=== PATIENT | female | born 1995 | race Caucasian/White ===

== ENCOUNTER 2017-04-14 06:46 | Inpatient (IN) | payer MEDICAID ==
[2017-04-14] MEDS ORDERED: Misoprostol 50 MCG (1/2 of 100 MCG) Tab ONE (07:37)
[2017-04-14] MEDS ORDERED: Misoprostol 50 MCG (1/2 of 100 MCG) Tab VAG ONE (07:38)
[2017-04-14] MEDS ORDERED: Ondansetron 4 MG/2 ML SDV IV PRN (08:06)
[2017-04-14] MEDS ORDERED: Calcium Carbonate 500 MG Tab.Chew PO PRN (08:06)
[2017-04-14] MEDS ORDERED: fentaNYL 100 MCG/2 ML SDV IVPUSH PRN (08:06)
[2017-04-14] MEDS ORDERED: Sodium Chloride 0.9% 10 ML Syringe FLUSH PRN (08:06)
[2017-04-14] MEDS ORDERED: Acetaminophen 325 MG Tab PO PRN (08:06)
--- NOTE | 2017-04-14 08:23 | PCM.LDHP ---
L&D History of Present Illness - General Date of Service: 04/14/17 Admit Problem/Dx: Patient Status Order with Admit Dx/Problem 04/14/17 08:06 Patient Status [ADT] Routine Admission Diagnosis/Problem Admission Diagnosis/Problem Source of Information: Patient History Limitations: Reports: No Limitations - History of Present Illness Associated Symptoms: Reports: N - Related Data Allergies/Adverse Reactions: Allergies Allergy/AdvReac Type Severity Reaction Status Date / Time No Known Allergies Allergy Verified 03/22/16 17:33 Home Medications: Home Meds Ferrous Sulfate [Iron] 1 tab PO DAILY 01/28/17 [History] Past Medical History - Past Health History Medical/Surgical History: Denies Medical/Surgical History HEENT History: Reports: Impaired Vision Genitourinary History: Reports: Other (See Below) Other Genitourinary History: UTI [employer] History: Reports: Other OB/BYN History: TRACY-04/13/2017 Neurological History: Reports: Migraines Social & Family History - Tobacco Use Smoking Status *Q: Never Smoker Second Hand Smoke Exposure: Yes - Caffeine Use Caffeine Use: Reports: Soda Other Caffeine Use: twice per week - Alcohol Use Days Per Week of Alcohol Use: 0 - Recreational Drug Use Recreational Drug Use: No - Living Situation & Occupation Living situation: Reports: with Significant Other Occupation: Employed H&P Review of Systems - Review of Systems: Review Of Systems: See Below General: Reports: No Symptoms HEENT: Reports: No Symptoms Pulmonary: Reports: No Symptoms Cardiovascular: Reports: No Symptoms Gastrointestinal: Reports: No Symptoms Genitourinary: Reports: No Symptoms Musculoskeletal: Reports: No Symptoms Skin: Reports: No Symptoms Psychiatric: Reports: No Symptoms Neurological: Reports: No Symptoms Hematologic/Lymphatic: Reports: No Symptoms Immunologic: Reports: No Symptoms L&D Exam - Exam Exam: See Below - Vital Signs Vital Signs: Last Vital Signs Temp 36.7 C 04/14/17 07:00 Pulse 86 04/14/17 07:00 Resp 16 04/14/17 07:00 BP 142/100 H 04/14/17 07:00 Pulse Ox 95 04/14/17 07:00 Weight: 77.564 kg - OB Specific Contraction Intensity: Mild Movement: Active Heart Tones: Present Heart Rate (FHR) Variability: Moderate (6-25 bmp) Presentation: Vertex - Watson Score Watson Score Cervix Position: Anterior Watson Score Consistency: Soft Watson Score Effacement: >80% Watson Score Dilation: 3-4 cm Watson Score Infant's Station: -1 ,0 Watson Score Total: 11 - Exam General: Alert, Oriented HEENT: PERRLA, Conjunctiva Clear, EACs Clear, EOMI, Hearing Intact, Mucosa Moist & [place], Nares Patent, Normal Nasal Septum, Posterior Pharynx Clear, TMs Clear Neck: Supple, Trachea Midline Lungs: Clear to Auscultation, Normal Respiratory Effort Cardiovascular: Regular Rate, Regular Rhythm GI/Abdominal Exam: Normal Bowel Sounds, Soft, Non-Tender, No Organomegaly, No Distention, No Abnormal Bruit, No Mass, Pelvis Stable Genitourinary: Normal external exam, Normal bimanual exam Back Exam: Normal Inspection, Full Range of Motion Extremities: Normal Inspection, Normal Range of Motion, Non-Tender, No Pedal Edema, Normal Capillary Refill Skin: Warm, Dry, Intact Neurological: Cranial Nerves Intact, Reflexes Equal Bilateral DTR: 2+: Patella (L), Patella (R) Psychiatric: Alert, Normal Affect, Normal Mood - Patient Data Lab Results Last 24 hrs: Laboratory Results - last 24 hr 04/14/17 04/14/17 04/14/17 Range/Units 06:56 06:56 07:05 WBC 7.7 (4.5-11.0) K/uL RBC 3.85 (3.30-5.50) M/uL Hgb 11.6 L (12.0-15.0) g/dL Hct 35.1 L (36.0-48.0) % MCV 91 (80-98) fL MCH 30 (27-31) pg MCHC 33 (32-36) % Plt Count 162 (150-400) K/uL Neut % (Auto) 47 (36-66) % Lymph % (Auto) 44 (24-44) % [place] % (Auto) 7 H (2-6) % Eos % (Auto) 2 (2-4) % Baso % (Auto) 0 (0-1) % Urine Color Yellow Urine Appearance Clear Urine pH 5.0 (4.5-8.0) Ur Specific [place] 1.010 (1.008-1.030) Urine Protein 100 H (NEGATIVE) mg/dL Urine Glucose (UA) Normal (NEGATIVE) mg/dL Urine Ketones Negative (NEGATIVE) mg/dL Urine Occult Blood Negative (NEGATIVE) Urine Nitrite Negative (NEGATIVE) Urine Bilirubin Negative (NEGATIVE) Urine Urobilinogen Normal (NORMAL) mg/dL Ur Leukocyte Esterase Small (NEGATIVE) Urine RBC 0-5 (0-5) Urine WBC 5-10 H (0-5) Ur Epithelial Cells Moderate Amorphous Sediment Not seen Urine Bacteria Moderate Urine Mucus Few Urine Opiates Screen Negative (NEGATIVE) Ur Oxycodone Screen Negative (NEGATIVE) Urine Methadone Screen Negative (NEGATIVE) Ur Propoxyphene Screen Negative (NEGATIVE) Ur Barbiturates Screen Negative (NEGATIVE) Ur Tricyclics Screen Negative (NEGATIVE) Ur Phencyclidine Scrn Negative (NEGATIVE) Ur Amphetamine Screen Negative (NEGATIVE) U Methamphetamines Scrn Negative (NEGATIVE) Urine MDMA Screen Negative (NEGATIVE) U Benzodiazepines Scrn Negative (NEGATIVE) U Cocaine Metab Screen Negative (NEGATIVE) U Marijuana (THC) Screen Negative (NEGATIVE) Result Diagrams: 04/14/17 07:05 - Problem List (1) Positive GBS test SNOMED Code(s): 9822761012346, 5983274930013 ICD Code: B95.1 - STREPTOCOCCUS, GROUP B, CAUSING DISEASES CLASSD ELSWHR Status: Acute Current Visit: Yes (2) Elective induction of labor planned SNOMED Code(s): 664128382 ICD Code: [id number] - Status: Acute Current Visit: Yes (3) SNOMED Code(s): 34271419 ICD Code: Z34.90 - ENCNTR FOR SUPRVSN OF NORMAL , UNSP, UNSP TRIMESTER Status: Acute Current Visit: Yes Qualifiers: Weeks of gestation: 40 weeks Qualified Code(s): Z3A.40 - 40 weeks gestation of Problem List Initiated/Reviewed/Updated: Yes Orders Last 24hrs: Active Orders 24 hr Category Date Time Status Patient Status [ADT] Routine ADT 04/14/17 08:06 Ordered Ambulate [RC] PER UNIT ROUTINE Care 04/14/17 08:06 Ordered Communication Order [RC] ASDIRECTED Care 04/14/17 08:06 Ordered Heart Tones [RC] PER UNIT ROUTINE Care 04/14/17 08:06 Ordered Notify Provider Vital Signs [RC] PRN Care 04/14/17 08:06 Ordered Notify Provider [RC] PRN Care 04/14/17 08:06 Ordered OB Check [OM.PC] Click to Edit Care 04/14/17 06:55 Ordered Up ad [place] [RC] ASDIRECTED Care 04/14/17 08:06 Ordered VTE/DVT Education [RC] Click to Edit Care 04/14/17 08:08 Ordered Vital Signs [RC] PER UNIT ROUTINE Care 04/14/17 08:06 Ordered Regular Diet [DIET] Diet 04/14/17 Breakfast Ordered Acetaminophen [Tylenol] Med 04/14/17 08:06 Ordered 650 mg PO Q4H PRN Calcium Carbonate [Tums] Med 04/14/17 08:06 Ordered 1,000 mg PO Q2HR PRN Lactated Ringers [Ringers, Lactated] 1,000 ml Med 04/14/17 08:30 Ordered IV ASDIRECTED Ondansetron [Zofran] Med 04/14/17 08:06 Ordered 4 mg IV Q4H PRN Penicillin G Potassium [Pfizerpen] 2.5 millunits Med 04/14/17 12:30 Ordered Sodium Chloride 0.9% [Normal Saline] 100 ml IV Q4H Penicillin G Potassium [Pfizerpen] 5 millunits Med 04/14/17 08:14 Ordered Sodium Chloride 0.9% [Normal Saline] 100 ml IV ONETIME Sodium Chloride 0.9% [Saline Flush] Med 04/14/17 08:06 Ordered 10 ml FLUSH ASDIRECTED PRN fentaNYL [Sublimaze] Med 04/14/17 08:06 Ordered 100 mcg IVPUSH Q1H PRN DVT/VTE Prophylaxis Reflex [OM.PC] Routine Oth 04/14/17 08:06 Ordered Saline Lock Insert [OM.PC] Routine Oth 04/14/17 08:06 Ordered Resuscitation Status Routine Resus Stat 04/14/17 08:06 Ordered Medication Orders Acetaminophen (Tylenol) 650 mg PO Q4H PRN PRN Reason: Pain (Mild 1-3) and fever Calcium Carbonate/Glycine (Tums) 1,000 mg PO Q2H PRN PRN Reason: Indigestion Fentanyl (Sublimaze) 100 mcg IVPUSH Q1H PRN PRN Reason: Pain (moderate 4-6) Penicillin G Potassium 5 (millunits/ Sodium Chloride) 100 mls @ 200 mls/hr IV ONETIME ONE Stop: 04/14/17 08:43 Lactated Ringer's (Ringers, Lactated) 1,000 mls @ 125 mls/hr IV ASDIRECTED SUKH Penicillin G Potassium 2.5 (millunits/ Sodium Chloride) 100 mls @ 200 mls/hr IV Q4H SU[facility] Ondansetron HCl (Zofran) 4 mg IV Q4H PRN PRN Reason: Nausea/Vomiting Sodium Chloride (Saline Flush) 10 ml FLUSH ASDIRECTED PRN PRN Reason: Keep Vein Open Assessment/Plan Comment:: 04/14/2017 22 yo here at 40 1/7 weeks gestation for an elective induction of labor. SVE-3/80/-1, Bishops Score-11 Cytotec 50mcg placed FHTs category one [place] irregularly Labs-Hgb 11.6, O positive, GBS positive, Rubella Immune, RPR nonreactive, Hep B negative, HIV negative Plan- Monitor for active labor Kei for GBS status IV fluids-LR @125ml/hr as needed, may bolus if needed Up and about as tolerated Intermittent Monitoring as needed Pain management per patient request Anticipate and plan for a vaginal delivery
[2017-04-14] MEDS ORDERED: Lactated Ringers 1,000 ML IV SCH (08:30)
[2017-04-14] MEDS ORDERED: Penicillin G Potassium 5 MILLUNITS in Sodium Chloride 0.9% 100 ML IV ONE (08:30)
[2017-04-14] MEDS ORDERED: Lidocaine 1% 50 ML MDV ONE (11:25)
[2017-04-14] MEDS ORDERED: Lactated Ringers 1,000 ML IV ONE (12:17)
--- NOTE | 2017-04-14 12:17 | PCM.PNLD ---
Labor Progress Note - VS & Meds Vital Signs: Last Vital Signs Temp 37.1 C 04/14/17 09:55 Pulse 77 04/14/17 09:55 Resp 16 04/14/17 07:00 BP 141/102 H 04/14/17 09:55 Pulse Ox 95 04/14/17 07:00 Active Medications: Current Medications Acetaminophen (Tylenol) 650 mg PO Q4H PRN PRN Reason: Pain (Mild 1-3) and fever Calcium Carbonate/Glycine (Tums) 1,000 mg PO Q2H PRN PRN Reason: Indigestion Fentanyl (Sublimaze) 100 mcg IVPUSH Q1H PRN PRN Reason: Pain (moderate 4-6) Lactated Ringer's (Ringers, Lactated) 1,000 mls @ 125 mls/hr IV ASDIRECTED SUKH Penicillin G Potassium 2.5 (millunits/ Sodium Chloride) 50 mls @ 100 mls/hr IV Q4H SU[facility] Ondansetron HCl (Zofran) 4 mg IV Q4H PRN PRN Reason: Nausea/Vomiting Sodium Chloride (Saline Flush) 10 ml FLUSH ASDIRECTED PRN PRN Reason: Keep Vein Open Discontinued Medications Penicillin G Potassium 5 (millunits/ Sodium Chloride) 100 mls @ 200 mls/hr IV ONETIME ONE Stop: 04/14/17 08:59 Last Admin: 04/14/17 08:39 Dose: 200 mls/hr Oxytocin/Sodium Chloride (Pitocin In Ns 20 Units/1,000 Ml) Confirm Administered Dose 20 unit in 1,000 mls @ as directed .ROUTE .STK-MED ONE Stop: 04/14/17 11:26 Lidocaine HCl (Xylocaine 1%) Confirm Administered Dose 100 ml .ROUTE .STK-MED ONE Stop: 04/14/17 11:26 Misoprostol (Cytotec) 50 mcg VAG ONETIME ONE Stop: 04/14/17 07:39 Last Admin: 04/14/17 07:35 Dose: 50 mcg Misoprostol (Cytotec) Confirm Administered Dose 50 mcg .ROUTE .STK-MED ONE Stop: 04/14/17 07:38 Last Admin: 04/14/17 10:43 Dose: Not Given - Uterine Contractions Uterine Monitoring Mode: External [place] Contraction Frequency (min): 1.5-2.5 Contraction Duration (sec): 60-80 Contraction Intensity: Moderate Uterine Resting Tone: Soft - Monitoring Heart Rate (FHR) Variability: Moderate (6-25 bmp) Accelerations: Present, 15x15 Decelerations: Early, Variable - Vaginal Exam Dilation (cm): 6 Effacement (Percent): 95 Station: 0 Cervical Position: Anterior Sterile Vaginal Exam Performed By: Deb West - Labor Progress (Free Text) Labor Progress: 04/14/2017 Progressing well in labor-SROM around 1030 during a cervical exam by RN CHAVA-6-/95/0 Patient is tolerating pain well, has been in tub and changed positions Would now like IV fentanyl FHTs category one with occasional early/variable BP levels have been high, small amount of protein in urine, but other labs negative and patient is asymptomatic, will continue to monitor and get her delivered. Plan- Continue to monitor labor Continue to monitor FHTs Continue to monitor VS and for signs and symptoms of preeclampsia Pain medication per patient request Patient may have an epidural if desires Plan and anticipate vaginal delivery
[2017-04-14] MEDS ORDERED: Penicillin G Potassium 2.5 MILLUNITS in Sodium Chloride 0.9% 50 ML IV SCH (12:30)
--- NOTE | 2017-04-14 13:17 | PCM.PNLD ---
Labor Progress Note - VS & Meds Vital Signs: Last Vital Signs Temp 37.1 C 04/14/17 09:55 Pulse 72 04/14/17 11:35 Resp 16 04/14/17 07:00 BP 156/103 H 04/14/17 11:35 Pulse Ox 95 04/14/17 07:00 Active Medications: Current Medications Acetaminophen (Tylenol) 650 mg PO Q4H PRN PRN Reason: Pain (Mild 1-3) and fever Calcium Carbonate/Glycine (Tums) 1,000 mg PO Q2H PRN PRN Reason: Indigestion Fentanyl (Sublimaze) 100 mcg IVPUSH Q1H PRN PRN Reason: Pain (moderate 4-6) Last Admin: 04/14/17 12:10 Dose: 50 mcg Lactated Ringer's (Ringers, Lactated) 1,000 mls @ 125 mls/hr IV ASDIRECTED SUKH Last Admin: 04/14/17 12:18 Dose: 125 mls/hr Penicillin G Potassium 2.5 (millunits/ Sodium Chloride) 50 mls @ 100 mls/hr IV Q4H [facility] Last Admin: 04/14/17 12:16 Dose: 100 mls/hr Lactated Ringer's (Ringers, Lactated) 1,000 mls @ 999 mls/hr IV .BOLUS ONE Stop: 04/14/17 13:17 Ondansetron HCl (Zofran) 4 mg IV Q4H PRN PRN Reason: Nausea/Vomiting Last Admin: 04/14/17 13:10 Dose: 4 mg Sodium Chloride (Saline Flush) 10 ml FLUSH ASDIRECTED PRN PRN Reason: Keep Vein Open Discontinued Medications Penicillin G Potassium 5 (millunits/ Sodium Chloride) 100 mls @ 200 mls/hr IV ONETIME ONE Stop: 04/14/17 08:59 Last Admin: 04/14/17 08:39 Dose: 200 mls/hr Oxytocin/Sodium Chloride (Pitocin In Ns 20 Units/1,000 Ml) Confirm Administered Dose 20 unit in 1,000 mls @ as directed .ROUTE .STK-MED ONE Stop: 04/14/17 11:26 Lidocaine HCl (Xylocaine 1%) Confirm Administered Dose 100 ml .ROUTE .STK-MED ONE Stop: 04/14/17 11:26 Misoprostol (Cytotec) 50 mcg VAG ONETIME ONE Stop: 04/14/17 07:39 Last Admin: 04/14/17 07:35 Dose: 50 mcg Misoprostol (Cytotec) Confirm Administered Dose 50 mcg .ROUTE .STK-MED ONE Stop: 04/14/17 07:38 Last Admin: 04/14/17 10:43 Dose: Not Given - Uterine Contractions Uterine Monitoring Mode: External [place] Contraction Frequency (min): 1.5-2.5 Contraction Duration (sec): 60-80 Contraction Intensity: Moderate Uterine Resting Tone: Soft - Monitoring Heart Rate (FHR) Variability: Moderate (6-25 bmp) Accelerations: Present, 15x15 Decelerations: Early, Variable - Vaginal Exam Dilation (cm): 9 Effacement (Percent): 100 Station: 0 Cervical Position: Anterior Sterile Vaginal Exam Performed By: Deb West - Labor Progress (Free Text) Labor Progress: 04/14/2017 Patient progressing well SVE-9/100/+1 FHTs with some variables and earlys Tolerating pain with movement and breathing, did have one dose of fentanyl Plan- Continue to monitor labor Continue to monitor FHTs Plan and anticipate vaginal delivery
[2017-04-14] MEDS ORDERED: Lidocaine 1% 50 ML MDV INJECT ONE (16:51)
[2017-04-14] MEDS: Acetaminophen/HYDROcodone 325-5 MG Tab PO PRN (17:00)
[2017-04-14] MEDS ORDERED: Benzocaine 20% Top Spray 56 GM Bottle TOP PRN (17:03)
[2017-04-14] MEDS ORDERED: Witch Hazel Medicated Pads 100/Jar TOP PRN (17:03)
[2017-04-14] MEDS ORDERED: Lanolin 100% Cream 40 GM Tube TOP PRN (17:03)
--- NOTE | 2017-04-14 17:27 | PCM.DEL ---
L & D Note - General Info Date of Service: 04/14/17 Mother's Due Date: 04/13/17 - Delivery Note Cervical Ripening Method: Misoprostil Delivery Outcome: Livebirth Delivery Method: Spontaneous Vaginal Delivery Infant Delivery Mode: Vacuum Extraction Presentation: Left Occiput Anterior (ARAMIS) Nuchal Cord: Present (times two), Reduced Anesthesia Type: None Anesthetic: Lidocaine (Xylocaine) 1% Plain Amniotic Fluid Description: Clear Episiotomy Type: Right Mediolateral Laceration: None Suture size: 3-0 Placenta: Intact, Spontaneous Cord: 3 Vessels Estimated Blood Loss: 300 Resuscitation Needed: No [place]: Bulb Syringe, Stimulated, Warmed, [place] Used Provider: Deb West Score 1 min: 8 Score 5 min: 9 Score 10 min: 9 Second Stage Interventions: Reports: Encouragement Given, Pushing Effectively, Pushing, Stirrups/Leg Supports Delivery Comments (Free Text/Narrative):: 04/14/2017 22 yo G1 now P1 at 40 1/7 gestational weeks delivered a viable male at 1534 on 04/14/2017 with a vacuum assisted delivery after cutting a mediolateral episiotomy in an ARAMIS position with a nuchal cord times two easily reduced. was then placed on blanket on abdomen, bulb suctioned, warmed, and stimulated. Infant began to cry vigorously. APGARS-8/9/9, weight-5lbs 15oz, length-20.4 inches. Placenta expressed spontaneously and intact, 3 vessel cord , EBL-300ml. Episiotomy repaired in usual fashion. Inspection shown no lacerations to the cervix, vagina, or rectum. Mother stable with infant skin to skin at this time. Induction Criteria - Watson Score Watson Score Dilation: 3-4 cm Watson Score Effacement: >80% Watson Score 's Station: -1 ,0 Watson Score Consistency: Soft Watson Score Cervix Position: Anterior Watson Score Total: 11 Watson Score Presenting Part: Reports: Cephalic - Induction Gestational Age >/= 39 wks: Yes Estimated Pelvis: Reports: Adequate Reassuring Monitoring Strip: Yes Vacuum Extractor Progress Note - Alternative Labor Strategies Considered Alternative Labor Strategies Considered:: Reports: Yes Strategies Considered:: Reports: Contraction Intensity Adequate, Position Changes Used to Facilitate Rotation & Descent, Empty Bladder, Rest Indications Considered:: Reports: Yes Indications:: Reports: Suspicion of Immediate or Potential Compromise Time Out:: Reports: Yes - Patient Prepared Patient Prepared:: Reports: Yes Informed Consent:: Reports: Yes Risks: Reports: Yes Risks Include:: Reports: Laceration, Shoulder Dystocia, Maternal Injury Anesthesia/Analgesia Adequate:: Reports: Yes - Probability of Success High Probability of Success:: Reports: Yes Weight Estimated:: Reports: SGA Patient Diabetic:: Reports: No Pelvis Adequate:: Reports: Yes Asynclitic:: Reports: No - Application Time Maximum Application Time & Number of Pop-Offs Predetermined:: Reports: Yes Total Application Time (min): *max=20min: 2 Number of Times Cup Disengaged:: 0 Vacuum Extraction: Successful - Exit Strategy Exit strategy available:: Reports: Yes and resuscitation teams readily available:: Reports: Yes - General Info Date of Service: 04/14/17 Admission Dx/Problem (Free Text): Patient Status Order with Admit Dx/Problem 04/14/17 08:06 Patient Status [ADT] Routine Admission Diagnosis/Problem Admission Diagnosis/Problem Functional Status: Reports: Pain Controlled - Review of Systems General: Reports: No Symptoms HEENT: Reports: No Symptoms Pulmonary: Reports: No Symptoms Cardiovascular: Reports: No Symptoms Gastrointestinal: Reports: No Symptoms Genitourinary: Reports: No Symptoms Musculoskeletal: Reports: No Symptoms Skin: Reports: No Symptoms Neurological: Reports: No Symptoms Psychiatric: Reports: No Symptoms - Patient Data Vitals - Most Recent: Last Vital Signs Temp 37.1 C 04/14/17 09:55 Pulse 72 04/14/17 11:35 Resp 16 04/14/17 07:00 BP 156/103 H 04/14/17 11:35 Pulse Ox 95 04/14/17 07:00 Weight - Most Recent: 77.564 kg I&O - Last 24 Hours: Intake & Output 04/14/17 04/14/17 04/14/17 06:59 14:59 22:59 Intake Total 150 2000 Balance 150 1999 Lab Results Last 24 Hours: Laboratory Results - last 24 hr 04/14/17 04/14/17 04/14/17 Range/Units 06:56 06:56 07:05 WBC 7.7 (4.5-11.0) K/uL RBC 3.85 (3.30-5.50) M/uL Hgb 11.6 L (12.0-15.0) g/dL Hct 35.1 L (36.0-48.0) % MCV 91 (80-98) fL MCH 30 (27-31) pg MCHC 33 (32-36) % Plt Count 162 (150-400) K/uL Neut % (Auto) 47 (36-66) % Lymph % (Auto) 44 (24-44) % [place] % (Auto) 7 H (2-6) % Eos % (Auto) 2 (2-4) % Baso % (Auto) 0 (0-1) % Sodium (140-148) mmol/L Potassium (3.6-5.2) mmol/L Chloride (100-108) mmol/L Carbon Dioxide (21-32) mmol/L Anion Gap (5.0-14.0) mmol/L BUN (7-18) mg/dL Creatinine (0.6-1.0) mg/dL Est Cr Clr Drug Dosing mL/min Estimated GFR (MDRD) (>60) Glucose (74-106) mg/dL Calcium (8.5-10.1) mg/dL Total Bilirubin (0.2-1.0) mg/dL AST (15-37) U/L ALT (12-78) U/L Alkaline Phosphatase (46-116) U/L Total Protein (6.4-8.2) g/dL Albumin (3.4-5.0) g/dL Globulin (2.3-3.5) g/dL Albumin/Globulin Ratio (1.2-2.2) Urine Color Yellow Urine Appearance Clear Urine pH 5.0 (4.5-8.0) Ur Specific [place] 1.010 (1.008-1.030) Urine Protein 100 H (NEGATIVE) mg/dL Urine Glucose (UA) Normal (NEGATIVE) mg/dL Urine Ketones Negative (NEGATIVE) mg/dL Urine Occult Blood Negative (NEGATIVE) Urine Nitrite Negative (NEGATIVE) Urine Bilirubin Negative (NEGATIVE) Urine Urobilinogen Normal (NORMAL) mg/dL Ur Leukocyte Esterase Small (NEGATIVE) Urine RBC 0-5 (0-5) Urine WBC 5-10 H (0-5) Ur Epithelial Cells Moderate Amorphous Sediment Not seen Urine Bacteria Moderate Urine Mucus Few Urine Opiates Screen Negative (NEGATIVE) Ur Oxycodone Screen Negative (NEGATIVE) Urine Methadone Screen Negative (NEGATIVE) Ur Propoxyphene Screen Negative (NEGATIVE) Ur Barbiturates Screen Negative (NEGATIVE) Ur Tricyclics Screen Negative (NEGATIVE) Ur Phencyclidine Scrn Negative (NEGATIVE) Ur Amphetamine Screen Negative (NEGATIVE) U Methamphetamines Scrn Negative (NEGATIVE) Urine MDMA Screen Negative (NEGATIVE) U Benzodiazepines Scrn Negative (NEGATIVE) U Cocaine Metab Screen Negative (NEGATIVE) U Marijuana (THC) Screen Negative (NEGATIVE) 04/14/17 Range/Units 08:30 WBC (4.5-11.0) K/uL RBC (3.30-5.50) M/uL Hgb (12.0-15.0) g/dL Hct (36.0-48.0) % MCV (80-98) fL MCH (27-31) pg MCHC (32-36) % Plt Count (150-400) K/uL Neut % (Auto) (36-66) % Lymph % (Auto) (24-44) % [place]ckenzie % (Auto) (2-6) % Eos % (Auto) (2-4) % Baso % (Auto) (0-1) % Sodium 136 L (140-148) mmol/L Potassium 3.8 (3.6-5.2) mmol/L Chloride 103 (100-108) mmol/L Carbon Dioxide 24 (21-32) mmol/L Anion Gap 12.8 (5.0-14.0) mmol/L BUN 16 (7-18) mg/dL Creatinine 0.7 (0.6-1.0) mg/dL Est Cr Clr Drug Dosing 115.36 mL/min Estimated GFR (MDRD) > 60 (>60) Glucose 80 (74-106) mg/dL Calcium 8.6 (8.5-10.1) mg/dL Total Bilirubin 0.1 L (0.2-1.0) mg/dL AST 23 (15-37) U/L ALT 20 (12-78) U/L Alkaline Phosphatase 164 H (46-116) U/L Total Protein 7.1 (6.4-8.2) g/dL Albumin 2.9 L (3.4-5.0) g/dL Globulin 4.2 H (2.3-3.5) g/dL Albumin/Globulin Ratio 0.7 L (1.2-2.2) Urine Color Urine Appearance Urine pH (4.5-8.0) Ur Specific [place] (1.008-1.030) Urine Protein (NEGATIVE) mg/dL Urine Glucose (UA) (NEGATIVE) mg/dL Urine Ketones (NEGATIVE) mg/dL Urine Occult Blood (NEGATIVE) Urine Nitrite (NEGATIVE) Urine Bilirubin (NEGATIVE) Urine Urobilinogen (NORMAL) mg/dL Ur Leukocyte Esterase (NEGATIVE) Urine RBC (0-5) Urine WBC (0-5) Ur Epithelial Cells Amorphous Sediment Urine Bacteria Urine Mucus Urine Opiates Screen (NEGATIVE) Ur Oxycodone Screen (NEGATIVE) Urine Methadone Screen (NEGATIVE) Ur Propoxyphene Screen (NEGATIVE) Ur Barbiturates Screen (NEGATIVE) Ur Tricyclics Screen (NEGATIVE) Ur Phencyclidine Scrn (NEGATIVE) Ur Amphetamine Screen (NEGATIVE) U Methamphetamines Scrn (NEGATIVE) Urine MDMA Screen (NEGATIVE) U Benzodiazepines Scrn (NEGATIVE) U Cocaine Metab Screen (NEGATIVE) U Marijuana (THC) Screen (NEGATIVE) Med Orders - Current: Current Medications Acetaminophen (Tylenol) 650 mg PO Q4H PRN PRN Reason: Pain (Mild 1-3) and fever Hydrocodone Bitart/Acetaminophen ([place] 325-5 Mg) 1 - 2 tab PO Q4H PRN PRN Reason: Pain Last Admin: 04/14/17 17:00 Dose: 1 tab Benzocaine (Ykah-I-Hxzspei 20% Roxana) 0 gm TOP Q4H PRN PRN Reason: Perineal Comfort Measure Calcium Carbonate/Glycine (Tums) 1,000 mg PO Q2H PRN PRN Reason: Indigestion Docusate Sodium (Colace) 100 mg PO BID PRN PRN Reason: Constipation Emollient Ointment (Lansinoh Hpa) 1 gm TOP ASDIRECTED PRN PRN Reason: Sore Nipples Fentanyl (Sublimaze) 100 mcg IVPUSH Q1H PRN PRN Reason: Pain (moderate 4-6) Last Admin: 04/14/17 12:10 Dose: 50 mcg Ferrous Sulfate (Ferrous Sulfate) 325 mg PO WITHBREAKFAST SUKH Lactated Ringer's (Ringers, Lactated) 1,000 mls @ 125 mls/hr IV ASDIRECTED SUKH Last Admin: 04/14/17 12:18 Dose: 125 mls/hr Oxytocin/Sodium Chloride (Pitocin In Ns 20 Units/1,000 Ml) 20 unit in 1,000 mls @ 2,997 mls/hr IV TITRATE SUKH; 999 MUNITS/MIN PRN Reason: Protocol Last Titration: 04/14/17 16:07 Dose: 125 mls/hr Oxytocin/Sodium Chloride (Pitocin In Ns 20 Units/1,000 Ml) 20 unit in 1,000 mls @ 2,997 mls/hr IV ONETIME ONE; 999 MUNITS/MIN PRN Reason: Protocol Stop: 04/14/17 17:36 Ibuprofen (Motrin) 600 mg PO Q6H PRN PRN Reason: mild pain or fever Misoprostol (Cytotec) 800 mcg PO ONETIME ONE Stop: 04/14/17 17:15 Ondansetron HCl (Zofran) 4 mg IV Q4H PRN PRN Reason: Nausea/Vomiting Last Admin: 04/14/17 13:10 Dose: 4 mg Prenat Multivit/[place]/Iron/Folic Ac ( Plus Iron) 1 each PO DAILY SUKH Sodium Chloride (Saline Flush) 10 ml FLUSH ASDIRECTED PRN PRN Reason: Keep Vein Open [place] (Tucks) 1 pad TOP ASDIRECTED PRN PRN Reason: Hemorrhoids Discontinued Medications Penicillin G Potassium 5 (millunits/ Sodium Chloride) 100 mls @ 200 mls/hr IV ONETIME ONE Stop: 04/14/17 08:59 Last Admin: 04/14/17 08:39 Dose: 200 mls/hr Penicillin G Potassium 2.5 (millunits/ Sodium Chloride) 50 mls @ 100 mls/hr IV Q4H SUKH Last Admin: 04/14/17 12:16 Dose: 100 mls/hr Oxytocin/Sodium Chloride (Pitocin In Ns 20 Units/1,000 Ml) Confirm Administered Dose 20 unit in 1,000 mls @ as directed .ROUTE .STK-MED ONE Stop: 04/14/17 11:26 Last Admin: 04/14/17 16:07 Dose: Not Given Lactated Ringer's (Ringers, Lactated) 1,000 mls @ 999 mls/hr IV .BOLUS ONE Stop: 04/14/17 13:17 Last Admin: 04/14/17 14:40 Dose: 999 mls/hr Lidocaine HCl (Xylocaine 1%) Confirm Administered Dose 100 ml .ROUTE .STK-MED ONE Stop: 04/14/17 11:26 Last Admin: 04/14/17 17:01 Dose: Not Given Lidocaine HCl (Xylocaine 1%) 100 ml INJECT ONETIME ONE Stop: 04/14/17 16:52 Last Admin: 04/14/17 17:01 Dose: 50 ml Misoprostol (Cytotec) 50 mcg VAG ONETIME ONE Stop: 04/14/17 07:39 Last Admin: 04/14/17 07:35 Dose: 50 mcg Misoprostol (Cytotec) Confirm Administered Dose 50 mcg .ROUTE .STK-MED ONE Stop: 04/14/17 07:38 Last Admin: 04/14/17 10:43 Dose: Not Given - Exam General: Alert, Oriented HEENT: Pupils Equal, Pupils Reactive, EOMI, Mucous Membr. Moist/[place] Neck: Supple Lungs: Clear to Auscultation, Normal Respiratory Effort Cardiovascular: Regular Rate, Regular Rhythm GI/Abdominal Exam: Normal Bowel Sounds, Soft, Non-Tender, No Organomegaly, No Distention, No Abnormal Bruit, No Mass, Pelvis Stable (Female) Exam: Normal External Exam, Normal Bimanual Exam, Enlarged Uterus, Vaginal Bleeding Back Exam: Normal Inspection, Full Range of Motion Extremities: Normal Inspection, Normal Range of Motion, Non-Tender, No Pedal Edema, Normal Capillary Refill Skin: Warm, Dry, Intact Wound/Incisions: Healing Well Neurological: No New Focal Deficit Psy/Mental Status: Alert, Normal Affect, Normal Mood - Problem List & Annotations (1) Positive GBS test SNOMED Code(s): 2606411117828, 1595823573783 Code(s): B95.1 - STREPTOCOCCUS, GROUP B, CAUSING DISEASES CLASSD [id number] Status: Acute Current Visit: Yes (2) Elective induction of labor planned SNOMED Code(s): 274412593 Code(s): TYE4572 - Status: Acute Current Visit: Yes (3) SNOMED Code(s): 98552150 Code(s): Z34.90 - ENCNTR FOR SUPRVSN OF NORMAL , UNSP, UNSP TRIMESTER Status: Acute Current Visit: Yes Qualifiers: Weeks of gestation: 40 weeks Qualified Code(s): Z3A.40 - 40 weeks gestation of (4) Episiotomy pain SNOMED Code(s): 535951266 Code(s): O90.89 - OTH COMPLICATIONS OF THE PUERPERIUM, NEC; G89.18 - OTHER ACUTE POSTPROCEDURAL PAIN Status: Acute Current Visit: Yes (5) Perineal laceration SNOMED Code(s): 261955510 Code(s): S31.41XA - LACERATION W/O FOREIGN BODY OF VAGINA AND VULVA, INIT ENCNTR Status: Acute Current Visit: Yes (6) hemorrhage, delivered SNOMED Code(s): 07231209 Code(s): O72.1 - OTHER IMMEDIATE HEMORRHAGE Status: Acute Current Visit: Yes - Problem List Review Problem List Initiated/Reviewed/Updated: Yes - My Orders Last 24 Hours: My Active Orders 04/14/17 06:55 OB Check [OM.PC] Click to Edit 04/14/17 08:06 Patient Status [ADT] Routine Ambulate [RC] PER UNIT ROUTINE Communication Order [RC] ASDIRECTED Notify Provider Vital Signs [RC] PRN Notify Provider [RC] PRN Up ad [place] [RC] ASDIRECTED Vital Signs [RC] Q4H Acetaminophen [Tylenol] 650 mg PO Q4H PRN Calcium Carbonate [Tums] 1,000 mg PO Q2H PRN Ondansetron [Zofran] 4 mg IV Q4H PRN Sodium Chloride 0.9% [Saline Flush] 10 ml FLUSH ASDIRECTED PRN fentaNYL [Sublimaze] 100 mcg IVPUSH Q1H PRN DVT/VTE Prophylaxis Reflex [OM.PC] Routine Saline Lock Insert [OM.PC] Routine Resuscitation Status Routine 04/14/17 08:08 VTE/DVT Education [RC] Click to Edit 04/14/17 08:30 Lactated Ringers [Ringers, Lactated] 1,000 ml IV ASDIRECTED 04/14/17 12:17 Local Anesthetic Infusion Pump [RC] ASDIRECTED PCEA Epidural [RC] ASDIRECTED Epidural Catheter Management [OM.PC] Routine 04/14/17 15:34 Patient Status [ADT] Routine 04/14/17 15:47 Acetaminophen/HYDROcodone [[place] 325-5 MG] 1 - 2 tab PO Q4H PRN 04/14/17 16:15 Oxytocin/Normal Saline [Pitocin in NS 20 Units/1,000 ML] 20 unit in 1,000 ml IV TITRATE 04/14/17 17:03 Communication Order [RC] Per Unit Routine May Shower [RC] ASDIRECTED Benzocaine [Ququ-I-Zsddggv 20% Roxana] See Dose Instructions TOP Q4H PRN Docusate Sodium [Colace] 100 mg PO BID PRN Ibuprofen [Motrin] 600 mg PO Q6H PRN Lanolin [Lansinoh HPA] 1 gm TOP ASDIRECTED PRN [place] [Tucks] 1 pad TOP ASDIRECTED PRN Assess Lochia [WOMSER] Per Unit Routine Assess Uterine Involution [WOMSER] Per Unit Routine 04/14/17 17:04 Vital Signs [RC] PFP 04/14/17 17:05 Ice Therapy [OM.PC] Per Unit Routine Perineal Care [OM.PC] Per Unit Routine Sitz Bath [OM.PC] Per Unit Routine 04/14/17 17:14 Misoprostol [Cytotec] 800 mcg PO ONETIME ONE 04/14/17 17:16 Oxytocin/Normal Saline [Pitocin in NS 20 Units/1,000 ML] 20 unit in 1,000 ml IV ONETIME 04/14/17 Breakfast Regular Diet [DIET] 04/15/17 06:00 CBC WITH AUTO DIFF [HEME] Routine 04/15/17 08:00 Ferrous Sulfate 325 mg PO WITHBREAKFAST 04/15/17 09:00 Vit with Ca/FA/Iron [ Plus Iron] 1 each PO DAILY - Assessment Assessment:: 04/14/2017 Immediate Vacuum assisted vaginal delivery Episiotomy with repair GBS positive-two doses of antibiotics - Plan Plan:: 04/14/2017 22 yo here at 40 1/7 weeks gestation for an elective induction of labor. SVE-3/80/-1, Bishops Score-11 Cytotec 50mcg placed FHTs category one Darion irregularly Labs-Hgb 11.6, O positive, GBS positive, Rubella Immune, RPR nonreactive, Hep B negative, HIV negative Plan- Monitor for active labor Kei for GBS status IV fluids-LR @125ml/hr as needed, may bolus if needed Up and about as tolerated Intermittent Monitoring as needed Pain management per patient request Anticipate and plan for a vaginal delivery 04/14/2017 Routine Cares Monitor Bleeding closely since hemorrhage, Hgb tomorrow Monitor Vital Signs closely Encourage and Support Encourage Ice and Sitz baths, tucks, and dermoplast Plan discharge at 48hrs since GBS positive
[2017-04-14] MEDS ORDERED: Misoprostol 200 MCG Tab PO ONE (17:30)
--- NOTE | 2017-04-14 17:57 | PCM.PNPP ---
- General Info Date of Service: 04/14/17 Functional Status: Reports: Pain Controlled - Review of Systems General: Reports: No Symptoms HEENT: Reports: No Symptoms Pulmonary: Reports: No Symptoms Cardiovascular: Reports: No Symptoms Gastrointestinal: Reports: No Symptoms Genitourinary: Reports: No Symptoms Musculoskeletal: Reports: No Symptoms Skin: Reports: No Symptoms Neurological: Reports: No Symptoms Psychiatric: Reports: No Symptoms - Patient Data Vital Signs - Most Recent: Last Vital Signs Temp 37.1 C 04/14/17 09:55 Pulse 72 04/14/17 11:35 Resp 16 04/14/17 07:00 BP 156/103 H 04/14/17 11:35 Pulse Ox 95 04/14/17 07:00 Weight - Most Recent: 77.564 kg I&O - Last 24 Hours: Intake & Output 04/14/17 04/14/17 04/14/17 06:59 14:59 22:59 Intake Total 150 2000 Balance 150 2000 Lab Results - Last 24 Hours: Laboratory Results - last 24 hr 04/14/17 04/14/17 04/14/17 Range/Units 06:56 06:56 07:05 WBC 7.7 (4.5-11.0) K/uL RBC 3.85 (3.30-5.50) M/uL Hgb 11.6 L (12.0-15.0) g/dL Hct 35.1 L (36.0-48.0) % MCV 91 (80-98) fL MCH 30 (27-31) pg MCHC 33 (32-36) % Plt Count 162 (150-400) K/uL Neut % (Auto) 47 (36-66) % Lymph % (Auto) 44 (24-44) % [place] % (Auto) 7 H (2-6) % Eos % (Auto) 2 (2-4) % Baso % (Auto) 0 (0-1) % Sodium (140-148) mmol/L Potassium (3.6-5.2) mmol/L Chloride (100-108) mmol/L Carbon Dioxide (21-32) mmol/L Anion Gap (5.0-14.0) mmol/L BUN (7-18) mg/dL Creatinine (0.6-1.0) mg/dL Est Cr Clr Drug Dosing mL/min Estimated GFR (MDRD) (>60) Glucose (74-106) mg/dL Calcium (8.5-10.1) mg/dL Total Bilirubin (0.2-1.0) mg/dL AST (15-37) U/L ALT (12-78) U/L Alkaline Phosphatase (46-116) U/L Total Protein (6.4-8.2) g/dL Albumin (3.4-5.0) g/dL Globulin (2.3-3.5) g/dL Albumin/Globulin Ratio (1.2-2.2) Urine Color Yellow Urine Appearance Clear Urine pH 5.0 (4.5-8.0) Ur Specific [place] 1.010 (1.008-1.030) Urine Protein 100 H (NEGATIVE) mg/dL Urine Glucose (UA) Normal (NEGATIVE) mg/dL Urine Ketones Negative (NEGATIVE) mg/dL Urine Occult Blood Negative (NEGATIVE) Urine Nitrite Negative (NEGATIVE) Urine Bilirubin Negative (NEGATIVE) Urine Urobilinogen Normal (NORMAL) mg/dL Ur Leukocyte Esterase Small (NEGATIVE) Urine RBC 0-5 (0-5) Urine WBC 5-10 H (0-5) Ur Epithelial Cells Moderate Amorphous Sediment Not seen Urine Bacteria Moderate Urine Mucus Few Urine Opiates Screen Negative (NEGATIVE) Ur Oxycodone Screen Negative (NEGATIVE) Urine Methadone Screen Negative (NEGATIVE) Ur Propoxyphene Screen Negative (NEGATIVE) Ur Barbiturates Screen Negative (NEGATIVE) Ur Tricyclics Screen Negative (NEGATIVE) Ur Phencyclidine Scrn Negative (NEGATIVE) Ur Amphetamine Screen Negative (NEGATIVE) U Methamphetamines Scrn Negative (NEGATIVE) Urine MDMA Screen Negative (NEGATIVE) U Benzodiazepines Scrn Negative (NEGATIVE) U Cocaine Metab Screen Negative (NEGATIVE) U Marijuana (THC) Screen Negative (NEGATIVE) 04/14/17 Range/Units 08:30 WBC (4.5-11.0) K/uL RBC (3.30-5.50) M/uL Hgb (12.0-15.0) g/dL Hct (36.0-48.0) % MCV (80-98) fL MCH (27-31) pg MCHC (32-36) % Plt Count (150-400) K/uL Neut % (Auto) (36-66) % Lymph % (Auto) (24-44) % Henry % (Auto) (2-6) % Eos % (Auto) (2-4) % Baso % (Auto) (0-1) % Sodium 136 L (140-148) mmol/L Potassium 3.8 (3.6-5.2) mmol/L Chloride 103 (100-108) mmol/L Carbon Dioxide 24 (21-32) mmol/L Anion Gap 12.8 (5.0-14.0) mmol/L BUN 16 (7-18) mg/dL Creatinine 0.7 (0.6-1.0) mg/dL Est Cr Clr Drug Dosing 115.36 mL/min Estimated GFR (MDRD) > 60 (>60) Glucose 80 (74-106) mg/dL Calcium 8.6 (8.5-10.1) mg/dL Total Bilirubin 0.1 L (0.2-1.0) mg/dL AST 23 (15-37) U/L ALT 20 (12-78) U/L Alkaline Phosphatase 164 H (46-116) U/L Total Protein 7.1 (6.4-8.2) g/dL Albumin 2.9 L (3.4-5.0) g/dL Globulin 4.2 H (2.3-3.5) g/dL Albumin/Globulin Ratio 0.7 L (1.2-2.2) Urine Color Urine Appearance Urine pH (4.5-8.0) Ur Specific [place] (1.008-1.030) Urine Protein (NEGATIVE) mg/dL Urine Glucose (UA) (NEGATIVE) mg/dL Urine Ketones (NEGATIVE) mg/dL Urine Occult Blood (NEGATIVE) Urine Nitrite (NEGATIVE) Urine Bilirubin (NEGATIVE) Urine Urobilinogen (NORMAL) mg/dL Ur Leukocyte Esterase (NEGATIVE) Urine RBC (0-5) Urine WBC (0-5) Ur Epithelial Cells Amorphous Sediment Urine Bacteria Urine Mucus Urine Opiates Screen (NEGATIVE) Ur Oxycodone Screen (NEGATIVE) Urine Methadone Screen (NEGATIVE) Ur Propoxyphene Screen (NEGATIVE) Ur Barbiturates Screen (NEGATIVE) Ur Tricyclics Screen (NEGATIVE) Ur Phencyclidine Scrn (NEGATIVE) Ur Amphetamine Screen (NEGATIVE) U Methamphetamines Scrn (NEGATIVE) Urine MDMA Screen (NEGATIVE) U Benzodiazepines Scrn (NEGATIVE) U Cocaine Metab Screen (NEGATIVE) U Marijuana (THC) Screen (NEGATIVE) Med Orders - Current: Current Medications Acetaminophen (Tylenol) 650 mg PO Q4H PRN PRN Reason: Pain (Mild 1-3) and fever Hydrocodone Bitart/Acetaminophen ([place] 325-5 Mg) 1 - 2 tab PO Q4H PRN PRN Reason: Pain Last Admin: 04/14/17 17:00 Dose: 1 tab Benzocaine (Lzda-E-Iullxek 20% [place]) 0 gm TOP Q4H PRN PRN Reason: Perineal Comfort Measure Calcium Carbonate/Glycine (Tums) 1,000 mg PO Q2H PRN PRN Reason: Indigestion Docusate Sodium (Colace) 100 mg PO BID PRN PRN Reason: Constipation Emollient Ointment (Lansinoh Hpa) 1 gm TOP ASDIRECTED PRN PRN Reason: Sore Nipples Fentanyl (Sublimaze) 100 mcg IVPUSH Q1H PRN PRN Reason: Pain (moderate 4-6) Last Admin: 04/14/17 12:10 Dose: 50 mcg Ferrous Sulfate (Ferrous Sulfate) 325 mg PO WITHBREAKFAST [facility] Lactated Ringer's (Ringers, Lactated) 1,000 mls @ 125 mls/hr IV ASDIRECTED SUKH Last Admin: 04/14/17 12:18 Dose: 125 mls/hr Oxytocin/Sodium Chloride (Pitocin In Ns 20 Units/1,000 Ml) 20 unit in 1,000 mls @ 2,997 mls/hr IV TITRATE SUKH; 999 MUNITS/MIN PRN Reason: Protocol Last Titration: 04/14/17 16:07 Dose: 125 mls/hr Ibuprofen (Motrin) 600 mg PO Q6H PRN PRN Reason: mild pain or fever Ondansetron HCl (Zofran) 4 mg IV Q4H PRN PRN Reason: Nausea/Vomiting Last Admin: 04/14/17 13:10 Dose: 4 mg Prenat Multivit/[place]/Iron/Folic Ac ( Plus Iron) 1 each PO DAILY [facility] Sodium Chloride (Saline Flush) 10 ml FLUSH ASDIRECTED PRN PRN Reason: Keep Vein Open [place] (Tucks) 1 pad TOP ASDIRECTED PRN PRN Reason: Hemorrhoids Discontinued Medications Penicillin G Potassium 5 (millunits/ Sodium Chloride) 100 mls @ 200 mls/hr IV ONETIME ONE Stop: 04/14/17 08:59 Last Admin: 04/14/17 08:39 Dose: 200 mls/hr Penicillin G Potassium 2.5 (millunits/ Sodium Chloride) 50 mls @ 100 mls/hr IV Q4H SUKH Last Admin: 04/14/17 12:16 Dose: 100 mls/hr Oxytocin/Sodium Chloride (Pitocin In Ns 20 Units/1,000 Ml) Confirm Administered Dose 20 unit in 1,000 mls @ as directed .ROUTE .STK-MED ONE Stop: 04/14/17 11:26 Last Admin: 04/14/17 16:07 Dose: Not Given Lactated Ringer's (Ringers, Lactated) 1,000 mls @ 999 mls/hr IV .BOLUS ONE Stop: 04/14/17 13:17 Last Admin: 04/14/17 14:40 Dose: 999 mls/hr Lidocaine HCl (Xylocaine 1%) Confirm Administered Dose 100 ml .ROUTE .STK-MED ONE Stop: 04/14/17 11:26 Last Admin: 04/14/17 17:01 Dose: Not Given Lidocaine HCl (Xylocaine 1%) 100 ml INJECT ONETIME ONE Stop: 04/14/17 16:52 Last Admin: 04/14/17 17:01 Dose: 50 ml Misoprostol (Cytotec) 50 mcg VAG ONETIME ONE Stop: 04/14/17 07:39 Last Admin: 04/14/17 07:35 Dose: 50 mcg Misoprostol (Cytotec) Confirm Administered Dose 50 mcg .ROUTE .STK-MED ONE Stop: 04/14/17 07:38 Last Admin: 04/14/17 10:43 Dose: Not Given Misoprostol (Cytotec) 800 mcg PO ONETIME ONE Stop: 04/14/17 17:31 - Interaction Support Person: Significant Other - Recovery Exam Fundal Tone: Firm Fundal Level: At Umbilicus Fundal Placement: Midline Lochia Amount: Moderate Lochia Color: Rubra/Red Perineum Description: Intact, Minimal Bruising/Swelling Bladder Status: Voiding - Problem List & Annotations (1) Positive GBS test SNOMED Code(s): 9928691840113, 7444097321839 Code(s): B95.1 - STREPTOCOCCUS, GROUP B, CAUSING DISEASES CLASSD ELSWHR Status: Acute (2) Elective induction of labor planned SNOMED Code(s): 349103016 Code(s): GMJ2842 - Status: Acute (3) SNOMED Code(s): 09419158 Code(s): Z34.90 - ENCNTR FOR SUPRVSN OF NORMAL , UNSP, UNSP TRIMESTER Status: Acute Qualifiers: Weeks of gestation: 40 weeks Qualified Code(s): Z3A.40 - 40 weeks gestation of (4) Episiotomy pain SNOMED Code(s): 804515658 Code(s): O90.89 - OTH COMPLICATIONS OF THE PUERPERIUM, NEC; G89.18 - OTHER ACUTE POSTPROCEDURAL PAIN Status: Acute (5) Perineal laceration SNOMED Code(s): 195848151 Code(s): S31.41XA - LACERATION W/O FOREIGN BODY OF VAGINA AND VULVA, INIT ENCNTR Status: Acute (6) hemorrhage, delivered SNOMED Code(s): 77733498 Code(s): O72.1 - OTHER IMMEDIATE HEMORRHAGE Status: Acute - My Orders Last 24 Hours: My Active Orders 04/14/17 06:55 OB Check [OM.PC] Click to Edit 04/14/17 08:06 Patient Status [ADT] Routine Ambulate [RC] PER UNIT ROUTINE Communication Order [RC] ASDIRECTED Notify Provider Vital Signs [RC] PRN Notify Provider [RC] PRN Up ad [place] [RC] ASDIRECTED Vital Signs [RC] Q4H Acetaminophen [Tylenol] 650 mg PO Q4H PRN Calcium Carbonate [Tums] 1,000 mg PO Q2H PRN Ondansetron [Zofran] 4 mg IV Q4H PRN Sodium Chloride 0.9% [Saline Flush] 10 ml FLUSH ASDIRECTED PRN fentaNYL [Sublimaze] 100 mcg IVPUSH Q1H PRN DVT/VTE Prophylaxis Reflex [OM.PC] Routine Saline Lock Insert [OM.PC] Routine Resuscitation Status Routine 04/14/17 08:08 VTE/DVT Education [RC] Click to Edit 04/14/17 08:30 Lactated Ringers [Ringers, Lactated] 1,000 ml IV ASDIRECTED 04/14/17 12:17 Local Anesthetic Infusion Pump [RC] ASDIRECTED PCEA Epidural [RC] ASDIRECTED Epidural Catheter Management [OM.PC] Routine 04/14/17 15:34 Patient Status [ADT] Routine 04/14/17 15:47 Acetaminophen/HYDROcodone [[place] 325-5 MG] 1 - 2 tab PO Q4H PRN 04/14/17 16:15 Oxytocin/Normal Saline [Pitocin in NS 20 Units/1,000 ML] 20 unit in 1,000 ml IV TITRATE 04/14/17 17:03 Communication Order [RC] Per Unit Routine May Shower [RC] ASDIRECTED Benzocaine [Lsvd-A-Uybbnsu 20% [place]] See Dose Instructions TOP Q4H PRN Docusate Sodium [Colace] 100 mg PO BID PRN Ibuprofen [Motrin] 600 mg PO Q6H PRN Lanolin [Lansinoh HPA] 1 gm TOP ASDIRECTED PRN [place] [Tucks] 1 pad TOP ASDIRECTED PRN Assess Lochia [WOMSER] Per Unit Routine Assess Uterine Involution [WOMSER] Per Unit Routine 04/14/17 17:04 Vital Signs [RC] PFP 04/14/17 17:05 Ice Therapy [OM.PC] Per Unit Routine Perineal Care [OM.PC] Per Unit Routine Sitz Bath [OM.PC] Per Unit Routine 04/14/17 Breakfast Regular Diet [DIET] 04/15/17 06:00 CBC WITH AUTO DIFF [HEME] Routine 04/15/17 08:00 Ferrous Sulfate 325 mg PO WITHBREAKFAST 04/15/17 09:00 Vit with Ca/FA/Iron [ Plus Iron] 1 each PO DAILY - Assessment Assessment:: 04/14/2017 Immediate Vacuum assisted vaginal delivery Episiotomy with repair GBS positive-two doses of antibiotics - Plan Plan:: 04/14/2017 22 yo here at 40 1/7 weeks gestation for an elective induction of labor. SVE-3/80/-1, Bishops Score-11 Cytotec 50mcg placed FHTs category one Darion irregularly Labs-Hgb 11.6, O positive, GBS positive, Rubella Immune, RPR nonreactive, Hep B negative, HIV negative Plan- Monitor for active labor Kei for GBS status IV fluids-LR @125ml/hr as needed, may bolus if needed Up and about as tolerated Intermittent Monitoring as needed Pain management per patient request Anticipate and plan for a vaginal delivery 04/14/2017 Routine Cares Monitor Bleeding closely since hemorrhage, Hgb tomorrow Monitor Vital Signs closely Encourage and Support Encourage Ice and Sitz baths, tucks, and dermoplast Plan discharge at 48hrs since GBS positive
[2017-04-14] MEDS: Ibuprofen 600 MG Tab PO PRN (19:02)
[2017-04-15] MEDS: Acetaminophen/HYDROcodone 325-5 MG Tab PO PRN (05:57)
[2017-04-15] MEDS: Ibuprofen 600 MG Tab PO PRN ×2 (08:25→14:17)
[2017-04-15] MEDS: Ferrous Sulfate 325 MG Tab PO SCH (08:25)
[2017-04-15] MEDS: Prenatal Multivitamin with Calcium/Folic Acid/Iron Tab PO SCH (08:25)
[2017-04-15] MEDS: Docusate Sodium 100 MG Cap PO PRN (08:25)
--- NOTE | 2017-04-15 10:40 | PCM.PNPP ---
- General Info Date of Service: 04/15/17 (PPD 1) Admission Dx/Problem (Free Text): Patient Status Order with Admit Dx/Problem 04/14/17 08:06 Patient Status [ADT] Routine Admission Diagnosis/Problem Admission Diagnosis/Problem Functional Status: Reports: Pain Controlled - Review of Systems General: Reports: No Symptoms HEENT: Reports: No Symptoms Pulmonary: Reports: No Symptoms Cardiovascular: Reports: No Symptoms Gastrointestinal: Reports: No Symptoms Genitourinary: Reports: No Symptoms Musculoskeletal: Reports: No Symptoms Skin: Reports: No Symptoms Neurological: Reports: No Symptoms Psychiatric: Reports: No Symptoms - Patient Data Vital Signs - Most Recent: Last Vital Signs Temp 95.5 F 04/15/17 07:18 Pulse 83 04/15/17 07:18 Resp 14 04/15/17 07:18 BP 145/93 H 04/15/17 07:18 Pulse Ox 97 04/15/17 07:18 Weight - Most Recent: 171 lb I&O - Last 24 Hours: Intake & Output 04/14/17 04/15/17 04/15/17 22:59 06:59 14:59 Intake Total 2800 Balance 2800 Lab Results - Last 24 Hours: Laboratory Results - last 24 hr 04/15/17 Range/Units 05:45 WBC 9.0 (4.5-11.0) K/uL RBC 3.43 (3.30-5.50) M/uL Hgb 10.4 L (12.0-15.0) g/dL Hct 31.3 L (36.0-48.0) % MCV 91 (80-98) fL MCH 30 (27-31) pg MCHC 33 (32-36) % Plt Count 127 L (150-400) K/uL Neut % (Auto) 63 (36-66) % Lymph % (Auto) 29 (24-44) % [place] % (Auto) 7 H (2-6) % Eos % (Auto) 0 L (2-4) % Baso % (Auto) 0 (0-1) % Med Orders - Current: Current Medications Acetaminophen (Tylenol) 650 mg PO Q4H PRN PRN Reason: Pain (Mild 1-3) and fever Hydrocodone Bitart/Acetaminophen ([place] 325-5 Mg) 1 - 2 tab PO Q4H PRN PRN Reason: Pain Last Admin: 04/15/17 05:57 Dose: 1 tab Benzocaine (Nojr-C-Ppexifk 20% [place]) 0 gm TOP Q4H PRN PRN Reason: Perineal Comfort Measure Last Admin: 04/14/17 19:07 Dose: 1 spray Calcium Carbonate/Glycine (Tums) 1,000 mg PO Q2H PRN PRN Reason: Indigestion Docusate Sodium (Colace) 100 mg PO BID PRN PRN Reason: Constipation Last Admin: 04/15/17 08:25 Dose: 100 mg Emollient Ointment (Lansinoh Hpa) 1 gm TOP ASDIRECTED PRN PRN Reason: Sore Nipples Last Admin: 04/14/17 19:03 Dose: 1 applic Fentanyl (Sublimaze) 100 mcg IVPUSH Q1H PRN PRN Reason: Pain (moderate 4-6) Last Admin: 04/14/17 12:10 Dose: 50 mcg Ferrous Sulfate (Ferrous Sulfate) 325 mg PO WITHBREAKFAST SUKH Last Admin: 04/15/17 08:25 Dose: 325 mg Lactated Ringer's (Ringers, Lactated) 1,000 mls @ 125 mls/hr IV ASDIRECTED SUKH Last Admin: 04/14/17 12:18 Dose: 125 mls/hr Oxytocin/Sodium Chloride (Pitocin In Ns 20 Units/1,000 Ml) 20 unit in 1,000 mls @ 2,997 mls/hr IV TITRATE SUKH; 999 MUNITS/MIN PRN Reason: Protocol Last Titration: 04/14/17 16:07 Dose: 125 mls/hr Ibuprofen (Motrin) 600 mg PO Q6H PRN PRN Reason: mild pain or fever Last Admin: 04/15/17 08:25 Dose: 600 mg Ondansetron HCl (Zofran) 4 mg IV Q4H PRN PRN Reason: Nausea/Vomiting Last Admin: 04/14/17 13:10 Dose: 4 mg Prenat Multivit/[place]/Iron/Folic Ac ( Plus Iron) 1 each PO DAILY SUKH Last Admin: 04/15/17 08:25 Dose: 1 each Sodium Chloride (Saline Flush) 10 ml FLUSH ASDIRECTED PRN PRN Reason: Keep Vein Open [place] (Tucks) 1 pad TOP ASDIRECTED PRN PRN Reason: Hemorrhoids Last Admin: 04/14/17 19:07 Dose: 1 applic Discontinued Medications Penicillin G Potassium 5 (millunits/ Sodium Chloride) 100 mls @ 200 mls/hr IV ONETIME ONE Stop: 04/14/17 08:59 Last Admin: 04/14/17 08:39 Dose: 200 mls/hr Penicillin G Potassium 2.5 (millunits/ Sodium Chloride) 50 mls @ 100 mls/hr IV Q4H SUKH Last Admin: 04/14/17 12:16 Dose: 100 mls/hr Oxytocin/Sodium Chloride (Pitocin In Ns 20 Units/1,000 Ml) Confirm Administered Dose 20 unit in 1,000 mls @ as directed .ROUTE .STK-MED ONE Stop: 04/14/17 11:26 Last Admin: 04/14/17 16:07 Dose: Not Given Lactated Ringer's (Ringers, Lactated) 1,000 mls @ 999 mls/hr IV .BOLUS ONE Stop: 04/14/17 13:17 Last Admin: 04/14/17 14:40 Dose: 999 mls/hr Lidocaine HCl (Xylocaine 1%) Confirm Administered Dose 100 ml .ROUTE .STK-MED ONE Stop: 04/14/17 11:26 Last Admin: 04/14/17 17:01 Dose: Not Given Lidocaine HCl (Xylocaine 1%) 100 ml INJECT ONETIME ONE Stop: 04/14/17 16:52 Last Admin: 04/14/17 17:01 Dose: 50 ml Misoprostol (Cytotec) 50 mcg VAG ONETIME ONE Stop: 04/14/17 07:39 Last Admin: 04/14/17 07:35 Dose: 50 mcg Misoprostol (Cytotec) Confirm Administered Dose 50 mcg .ROUTE .STK-MED ONE Stop: 04/14/17 07:38 Last Admin: 04/14/17 10:43 Dose: Not Given Misoprostol (Cytotec) 800 mcg PO ONETIME ONE Stop: 04/14/17 17:31 Last Admin: 04/14/17 19:02 Dose: 800 mcg - Interaction Infant Disposition, : in Room with Family Interaction: Holding Feeding: Breastfed Infant; Nursed Well, Difficulty with Latch-on Support Person: Significant Other - Recovery Exam Fundal Tone: Firms with Massage Fundal Level: 1 Fingerbreadths Below Umbilicus Fundal Placement: Midline Lochia Amount: Small Lochia Color: Rubra/Red Perineum Description: Intact, Minimal Bruising/Swelling (repair intact no hematoma with digital exam) Episiotomy/Laceration: Approximated Bladder Status: Voiding Urinary Elimination: Voided - Exam General: Alert, Oriented HEENT: Pupils Equal Neck: Supple Lungs: Clear to Auscultation, Normal Respiratory Effort Cardiovascular: Regular Rate, Regular Rhythm GI/Abdominal Exam: Normal Bowel Sounds, Soft, Non-Tender, No Organomegaly, No Distention, No Abnormal Bruit, No Mass, Pelvis Stable Extremities: Normal Inspection, Normal Range of Motion, Non-Tender, No Pedal Edema, Normal Capillary Refill Skin: Warm, Dry, Intact Wound/Incisions: Healing Well Neurological: No New Focal Deficit Psy/Mental Status: Alert, Normal Affect, Normal Mood - Problem List & Annotations (1) Episiotomy pain SNOMED Code(s): 896811436 Code(s): O90.89 - OTH COMPLICATIONS OF THE PUERPERIUM, NEC; G89.18 - OTHER ACUTE POSTPROCEDURAL PAIN Status: Acute Current Visit: Yes (2) Perineal laceration SNOMED Code(s): 517862353 Code(s): S31.41XA - LACERATION W/O FOREIGN BODY OF VAGINA AND VULVA, INIT ENCNTR Status: Acute Current Visit: Yes (3) hemorrhage, delivered SNOMED Code(s): 89541780 Code(s): O72.1 - OTHER IMMEDIATE HEMORRHAGE Status: Acute Current Visit: Yes (4) Positive GBS test SNOMED Code(s): 1655547143279, 2534963066633 Code(s): B95.1 - STREPTOCOCCUS, GROUP B, CAUSING DISEASES CLASSD ELSWHR Status: Acute Current Visit: Yes (5) Elective induction of labor planned SNOMED Code(s): 983248947 Code(s): LIN5100 - Status: Acute Current Visit: Yes (6) SNOMED Code(s): 53897649 Code(s): Z34.90 - ENCNTR FOR SUPRVSN OF NORMAL , UNSP, UNSP TRIMESTER Status: Acute Current Visit: Yes Qualifiers: Weeks of gestation: 40 weeks Qualified Code(s): Z3A.40 - 40 weeks gestation of - Problem List Review Problem List Initiated/Reviewed/Updated: Yes - Assessment Assessment:: 04/14/2017 Immediate Vacuum assisted vaginal delivery Episiotomy with repair GBS positive-two doses of antibiotics 04/15/17 Feels well, some pain from repair work, bleeding light. HGB 10.4 from 11.6 Up and about, doing education videos Needs help with latching otherwise baby doing well at breast. - Plan Plan:: 04/14/2017 22 yo here at 40 1/7 weeks gestation for an elective induction of labor. SVE-3/80/-1, Bishops Score-11 Cytotec 50mcg placed FHTs category one [place] irregularly Labs-Hgb 11.6, O positive, GBS positive, Rubella Immune, RPR nonreactive, Hep B negative, HIV negative Plan- Monitor for active labor Kei for GBS status IV fluids-LR @125ml/hr as needed, may bolus if needed Up and about as tolerated Intermittent Monitoring as needed Pain management per patient request Anticipate and plan for a vaginal delivery 04/14/2017 Routine Cares Monitor Bleeding closely since hemorrhage, Hgb tomorrow Monitor Vital Signs closely Encourage and Support Encourage Ice and Sitz baths, tucks, and dermoplast Plan discharge at 48hrs since GBS positive 04/15/17 Routine cares Continue to work and support education on home cares and activities post Encouraged sitz bath today Is willing to learn and is happy. Home tomorrow
[2017-04-16] MEDS: Ibuprofen 600 MG Tab PO PRN ×2 (03:57→10:09)
--- NOTE | 2017-04-16 10:01 | PCM.PNPP ---
- General Info Date of Service: 04/16/17 (PPD 2 D/C) Admission Dx/Problem (Free Text): Patient Status Order with Admit Dx/Problem 04/14/17 08:06 Patient Status [ADT] Routine Admission Diagnosis/Problem Admission Diagnosis/Problem Functional Status: Reports: Pain Controlled - Review of Systems General: Reports: No Symptoms HEENT: Reports: No Symptoms Pulmonary: Reports: No Symptoms Cardiovascular: Reports: No Symptoms Gastrointestinal: Reports: No Symptoms Genitourinary: Reports: No Symptoms Musculoskeletal: Reports: No Symptoms Skin: Reports: No Symptoms Neurological: Reports: No Symptoms Psychiatric: Reports: No Symptoms - General Info Date of Service: 04/16/17 - Patient Data Vital Signs - Most Recent: Last Vital Signs Temp 95.9 F 04/16/17 08:14 Pulse 98 04/16/17 08:14 Resp 16 04/16/17 08:14 BP 154/105 H 04/16/17 08:14 Pulse Ox 97 04/16/17 08:14 Weight - Most Recent: 171 lb I&O - Last 24 Hours: Intake & Output 04/15/17 04/16/17 04/16/17 22:59 06:59 14:59 Intake Total 800 Balance 800 Med Orders - Current: Current Medications Acetaminophen (Tylenol) 650 mg PO Q4H PRN PRN Reason: Pain (Mild 1-3) and fever Hydrocodone Bitart/Acetaminophen (Lesage 325-5 Mg) 1 - 2 tab PO Q4H PRN PRN Reason: Pain Last Admin: 04/15/17 05:57 Dose: 1 tab Benzocaine (Fadx-U-Kjtdaag 20% [place]) 0 gm TOP Q4H PRN PRN Reason: Perineal Comfort Measure Last Admin: 04/14/17 19:07 Dose: 1 spray Calcium Carbonate/Glycine (Tums) 1,000 mg PO Q2H PRN PRN Reason: Indigestion Docusate Sodium (Colace) 100 mg PO BID PRN PRN Reason: Constipation Last Admin: 04/15/17 08:25 Dose: 100 mg Emollient Ointment (Lansinoh Hpa) 1 gm TOP ASDIRECTED PRN PRN Reason: Sore Nipples Last Admin: 04/14/17 19:03 Dose: 1 applic Fentanyl (Sublimaze) 100 mcg IVPUSH Q1H PRN PRN Reason: Pain (moderate 4-6) Last Admin: 04/14/17 12:10 Dose: 50 mcg Ferrous Sulfate (Ferrous Sulfate) 325 mg PO WITHBREAKFAST SUKH Last Admin: 04/15/17 08:25 Dose: 325 mg Lactated Ringer's (Ringers, Lactated) 1,000 mls @ 125 mls/hr IV ASDIRECTED SUKH Last Admin: 04/14/17 12:18 Dose: 125 mls/hr Oxytocin/Sodium Chloride (Pitocin In Ns 20 Units/1,000 Ml) 20 unit in 1,000 mls @ 2,997 mls/hr IV TITRATE SUKH; 999 MUNITS/MIN PRN Reason: Protocol Last Titration: 04/14/17 16:07 Dose: 125 mls/hr Ibuprofen (Motrin) 600 mg PO Q6H PRN PRN Reason: mild pain or fever Last Admin: 04/16/17 03:57 Dose: 600 mg Ondansetron HCl (Zofran) 4 mg IV Q4H PRN PRN Reason: Nausea/Vomiting Last Admin: 04/14/17 13:10 Dose: 4 mg Prenat Multivit/Machining Manager/Iron/Folic Ac ( Plus Iron) 1 each PO DAILY SUKH Last Admin: 04/15/17 08:25 Dose: 1 each Sodium Chloride (Saline Flush) 10 ml FLUSH ASDIRECTED PRN PRN Reason: Keep Vein Open Witlesly Burns (Tucks) 1 pad TOP ASDIRECTED PRN PRN Reason: Hemorrhoids Last Admin: 04/14/17 19:07 Dose: 1 applic Discontinued Medications Penicillin G Potassium 5 (millunits/ Sodium Chloride) 100 mls @ 200 mls/hr IV ONETIME ONE Stop: 04/14/17 08:59 Last Admin: 04/14/17 08:39 Dose: 200 mls/hr Penicillin G Potassium 2.5 (millunits/ Sodium Chloride) 50 mls @ 100 mls/hr IV Q4H SUKH Last Admin: 04/14/17 12:16 Dose: 100 mls/hr Oxytocin/Sodium Chloride (Pitocin In Ns 20 Units/1,000 Ml) Confirm Administered Dose 20 unit in 1,000 mls @ as directed .ROUTE .STK-MED ONE Stop: 04/14/17 11:26 Last Admin: 08/25/17 16:07 Dose: Not Given Lactated Ringer's (Ringers, Lactated) 1,000 mls @ 999 mls/hr IV .BOLUS ONE Stop: 04/14/17 13:17 Last Admin: 04/14/17 14:40 Dose: 999 mls/hr Lidocaine HCl (Xylocaine 1%) Confirm Administered Dose 100 ml .ROUTE .STK-MED ONE Stop: 04/14/17 11:26 Last Admin: 04/14/17 17:01 Dose: Not Given Lidocaine HCl (Xylocaine 1%) 100 ml INJECT ONETIME ONE Stop: 04/14/17 16:52 Last Admin: 04/14/17 17:01 Dose: 50 ml Misoprostol (Cytotec) 50 mcg VAG ONETIME ONE Stop: 04/14/17 07:39 Last Admin: 04/14/17 07:35 Dose: 50 mcg Misoprostol (Cytotec) Confirm Administered Dose 50 mcg .ROUTE .STK-MED ONE Stop: 04/14/17 07:38 Last Admin: 04/14/17 10:43 Dose: Not Given Misoprostol (Cytotec) 800 mcg PO ONETIME ONE Stop: 04/14/17 17:31 Last Admin: 04/14/17 19:02 Dose: 800 mcg - Interaction Infant Disposition, : in Room with Family Interaction: Holding Infant Feeding: Breastfed Infant; Nursed Well, Difficulty with Latch-on Support Person: Significant Other - Recovery Exam Fundal Tone: Firms with Massage Fundal Level: 1 Fingerbreadths Below Umbilicus Fundal Placement: Midline Lochia Amount: Small Lochia Color: Rubra/Red Perineum Description: Intact, Minimal Bruising/Swelling (repair intact no hematoma with digital exam) Episiotomy/Laceration: Approximated Bladder Status: Voiding Urinary Elimination: Voided - Exam General: Alert, Oriented HEENT: Pupils Equal Neck: Supple Lungs: Clear to Auscultation, Normal Respiratory Effort Cardiovascular: Regular Rate, Regular Rhythm, Other (blood pressure remains high ) GI/Abdominal Exam: Normal Bowel Sounds, Soft, Non-Tender, No Organomegaly, No Distention, No Abnormal Bruit, No Mass, Pelvis Stable Extremities: Normal Inspection, Normal Range of Motion, Non-Tender, No Pedal Edema, Normal Capillary Refill Skin: Warm, Dry, Intact Wound/Incisions: Healing Well Neurological: No New Focal Deficit Psy/Mental Status: Alert, Normal Affect, Normal Mood - Problem List & Annotations (1) Episiotomy pain SNOMED Code(s): 894599438 Code(s): O90.89 - OTH COMPLICATIONS OF THE PUERPERIUM, NEC; G89.18 - OTHER ACUTE POSTPROCEDURAL PAIN Status: Acute Current Visit: Yes (2) Perineal laceration SNOMED Code(s): 673826112 Code(s): S31.41XA - LACERATION W/O FOREIGN BODY OF VAGINA AND VULVA, INIT ENCNTR Status: Acute Current Visit: Yes (3) hemorrhage, delivered SNOMED Code(s): 55619186 Code(s): O72.1 - OTHER IMMEDIATE HEMORRHAGE Status: Acute Current Visit: Yes (4) Positive GBS test SNOMED Code(s): 5569818650354, 7615514021263 Code(s): B95.1 - STREPTOCOCCUS, GROUP B, CAUSING DISEASES CLASSD [id number] Status: Acute Current Visit: Yes (5) Elective induction of labor planned SNOMED Code(s): 141736526 Code(s): MPA8298 - Status: Acute Current Visit: Yes (6) SNOMED Code(s): 29029054 Code(s): Z34.90 - ENCNTR FOR SUPRVSN OF NORMAL , UNSP, UNSP TRIMESTER Status: Acute Current Visit: Yes Qualifiers: Weeks of gestation: 40 weeks Qualified Code(s): Z3A.40 - 40 weeks gestation of (7) Hypertension affecting , delivered, current hospitalization SNOMED Code(s): 62994534 Code(s): O16.4 - UNSPECIFIED MATERNAL HYPERTENSION, COMPLICATING CHILDBIRTH Status: Acute Current Visit: Yes - Problem List Review Problem List Initiated/Reviewed/Updated: Yes - My Orders Last 24 Hours: My Active Orders 04/15/17 11:54 Peripheral IV Discontinue [OM.PC] Routine - Assessment Assessment:: 04/14/2017 Immediate Vacuum assisted vaginal delivery Episiotomy with repair GBS positive-two doses of antibiotics 04/15/17 Feels well, some pain from repair work, bleeding light. HGB 10.4 from 11.6 Up and about, doing education videos Needs help with latching otherwise baby doing well at breast. 04/16/17 Feels well, is working hard on . Latching is some better but not great. Blood pressure remains high, will start medication discharge later today - Plan Plan:: 04/14/2017 22 yo here at 40 1/7 weeks gestation for an elective induction of labor. SVE-/-1, Bishops Score-11 Cytotec 50mcg placed FHTs category one Darion irregularly Labs-Hgb 11.6, O positive, GBS positive, Rubella Immune, RPR nonreactive, Hep B negative, HIV negative Plan- Monitor for active labor Kei for GBS status IV fluids-LR @125ml/hr as needed, may bolus if needed Up and about as tolerated Intermittent Monitoring as needed Pain management per patient request Anticipate and plan for a vaginal delivery 04/14/2017 Routine Cares Monitor Bleeding closely since hemorrhage, Hgb tomorrow Monitor Vital Signs closely Encourage and Support Encourage Ice and Sitz baths, tucks, and dermoplast Plan discharge at 48hrs since GBS positive 04/15/17 Routine cares Continue to work and support education on home cares and activities post Encouraged sitz bath today Is willing to learn and is happy. Home tomorrow 04/16/17 start labetalol today see Deb 2 weeks for post blood pressure check. Really needs support. Will have pubic health make home visit. Home today
[2017-04-16] MEDS: Prenatal Multivitamin with Calcium/Folic Acid/Iron Tab PO SCH (10:09)
[2017-04-16] MEDS: Ferrous Sulfate 325 MG Tab PO SCH (10:09)
[2017-04-16] MEDS: Docusate Sodium 100 MG Cap PO PRN (10:09)
[2017-04-16] MEDS ORDERED: Labetalol 100 MG Tab PO SCH (10:15)
[2017-04-16 11:23] VITALS: BP 147/93
== END 2017-04-16 11:00 | disposition home or self-care (01) | DRG 774 ==
LOC: JP.OB 06:46 → OBSVTOIN 15:38 → JP.OB 15:38 → JP.MS 18:00
PROVIDERS: ADMIT Advanced Practice Midwife; ATTEND Advanced Practice Midwife
DX: O69.81X0 Labor and delivery complicated by cord around neck, without compression, not applicable or unspecified (principal); O72.1 Other immediate postpartum hemorrhage; O99.824 Streptococcus B carrier state complicating childbirth; Z3A.40 40 weeks gestation of pregnancy; Z37.0 Single live birth; O16.5 Unspecified maternal hypertension, complicating the puerperium
CPT/HCPCS: 36415; 80053; 80305; 81001; 85025; 99211; A9270-GY; J2405; J2540; J2590; J3010; J7030; J7050; J7120